=== PATIENT | female | born 1975 | race African-American/Black ===

== ENCOUNTER 2017-03-06 03:50 | Emergency (ER) | payer SELFPAY ==
[2017-03-06] MEDS ORDERED: Ketorolac Tromethamine 30 MG/ML VIAL ONE (04:27)
[2017-03-06] MEDS ORDERED: Diphenoxylate HCl/Atropine Tablet ONE (04:27)
[2017-03-06] MEDS ORDERED: Ondansetron HCl/PF 4 MG/2 ML Vial ONE (04:27)
[2017-03-06 05:22] LABS: ALT (SGPT) 9 U/L (8-55); AST (SGOT) 9 U/L (5-34); Albumin 3.8 g/dL (3.5-5.0); Alkaline Phosphatase 56 U/L (40-150); BUN (Urea Nitrogen) 13 mg/dL (7.0-18.7); Bilirubin, Total 0.6 mg/dL (0.2-1.2); CRP (Inflammatory) 5.01 mg/dL (= or < 0.5); Calc. Creatinine Clearance 0 mL/min (70-130); Calcium 8.9 mg/dL (7.8-10.44); Carbon Dioxide 27 mmol/L (22-29); Estimated GFR-MDRD 65; Globulin 3.7 g/dL (2.4-3.5); Glucose 112 mg/dL (70-105); Protein, Total 7.5 g/dL (6.0-8.3)
[2017-03-06 05:23] LABS: #Basophils 0.1 thou/uL (0.0-0.2); #Eosinphils 0.1 thou/uL (0.0-0.7); #Monocytes 0.8 thou/uL (0.11-0.59); #Neutrophils 7.2 thou/uL (1.40-6.50); %Basophils 0.8 % (0.0-1.0); %Lymphocytes 32.6 % (21.0-51.0); %Monocytes 6.6 % (0.0-10.0); %Neutrophils 58.9 % (42.0-75.0); Hemoglobin 14.4 g/dL (12.0-16.0); Mean Corpuscular HGB CONC 33.8 g/dL (32.0-36.0); Mean Corpuscular Hemoglobin 30.1 pg (27.0-31.0); Mean Corpuscular Volume 88.9 fl (81.0-99.0); Mean Platelet Volume 7.8 fL (7.4-10.4); Platelet Count 316 thou/uL (130-400); RBC Distribution Width 12.5 % (11.5-14.5); Red Blood Cell (RBC) Count 4.78 mill/uL (4.20-5.40); White Blood Cell (WBC) Count 12.2 thou/uL (4.8-10.8)
[2017-03-06 05:32] LABS: Clarity Cloudy (Clear); Glucose, Urine (Dipstick) Negative (Negative); Leukocyte Negative (Negative); Nitrite Negative (Negative); Pregnancy Test - Urine (BHCG) POSITIVE (Negative); Pregu Control Background? CLEAR/WHITE (CLR/WHITE); Pregu Control Bar Appear? YES (CONTROL BAR); Protein, Urine (Dipstick) 100 mg/dL (Neg-Trace); Specific Gravity 1.031 (1.002-1.036); Specific Gravity, Urine 1.031 (1.002-1.036)
[2017-03-06 05:33] LABS: Bacteria/HPF 3+ HPF (None Seen); Bilirubin Small (Negative); Blood, Urine Trace (Negative); Icto Negative (Negative); Yeast-All Forms 2+ HPF (None Seen)
[2017-03-06 05:34] LABS: Crystals/HPF RARE AMORPH URATES HPF (Negative)
[2017-03-06 05:38] LABS: Chloride 101 mmol/L (98-107); Potassium 3.5 mmol/L (3.5-5.1); Sodium 138 mmol/L (136-145)
[2017-03-06 05:39] LABS: Anion Gap 14 mmol/L (10-20)
[2017-03-06] MEDS ORDERED: cefTRIAXone\\ROCEPHIN 1 GM VIAL ONE (05:54)
[2017-03-06] MEDS ORDERED: Sodium Chloride 0.9% 1,000 ML BAG ONE (10:06)
[2017-03-06] MEDS ORDERED: Sodium Chloride 0.9% 100 ML BAG ONE (10:06)
== END 2017-03-06 06:20 | disposition home or self-care (01) ==
LOC: MADERS 03:50
DX: O23.41 Unspecified infection of urinary tract in pregnancy, first trimester (principal); O99.89 Other specified diseases and conditions complicating pregnancy, childbirth and the puerperium; R19.7 Diarrhea, unspecified
CPT/HCPCS: 36415; 80053; 81001; 81025; 82150; 83690; 84702; 85025; 86140; 87086; 96361; 96365; 96375; J0696; J1885; J2405; J7050